=== PATIENT | male | born 1980 | race Caucasian/White ===

== ENCOUNTER 2022-05-16 15:37 | Emergency (ER) | payer SELFPAY ==
[~2022-05-16] VITALS: Ht 175.3 cm; Wt 124.7 kg
--- NOTE | 2022-05-16 16:18 | NUR ---
pt nam from the streets, was found laying in the sidewalk, was agitated prior to coming in. restless and agitated. roomed, tachycardic otherwise stable vitals. awaiting md priest.
--- NOTE | 2022-05-16 16:37 | NUR ---
coty printed circuit photographer at bedside for eval.
--- NOTE | 2022-05-16 17:04 | NUR ---
metallurgy laboratory technician at bedside for blood draw.
[2022-05-16] MEDS ORDERED: HALOPERIDOL LACTATE INJ 5 MG/ML VIAL IM ONE (17:30)
[2022-05-16] MEDS ORDERED: LORAZEPAM INJ 2 MG/ML VIAL IM/IV ONE (17:30)
[2022-05-16] MEDS ORDERED: diphenhydrAMINE HCL 50 MG/ML VIAL IM ONE (17:30)
[2022-05-16] MEDS ORDERED: LORAZEPAM INJ 2 MG/ML VIAL ONE (17:35)
[2022-05-16] MEDS ORDERED: diphenhydrAMINE HCL 50 MG/ML VIAL ONE (17:35)
[2022-05-16] MEDS ORDERED: HALOPERIDOL LACTATE INJ 5 MG/ML VIAL ONE (17:35)
--- NOTE | 2022-05-16 17:46 | NUR ---
pt restless, walking around unsteady. medicated as ordered.
[2022-05-16 17:48] LABS: BASOPHILS % (AUTO) 0.3 % (0.0-2.0); EOSINOPHILS % (AUTO) 0.1 % (0.0-6.0); HEMATOCRIT 50 % (39-51); HEMOGLOBIN 16.7 g/dL (13.5-17.5); LYMPHOCYTES # (AUTO) 1.7 K/uL (0.8-4.8); LYMPHOCYTES % (AUTO) 24.4 % (20.0-44.0); MEAN CORPUSCULAR HGB CONC 34 g/dl (31.0-36.0); MEAN CORPUSCULAR VOLUME 90 fL (80-96); MONOCYTES # (AUTO) 0.5 K/uL (0.1-1.30); MONOCYTES % (AUTO) 6.3 % (2.0-12.0); NEUTROPHILS # (AUTO) 4.9 K/uL (1.8-8.9); NEUTROPHILS % (AUTO) 68.9 % (43.0-81.0); PLATELET COUNT (AUTO) 309 K/uL (150-450); WHITE BLOOD COUNT (AUTO) 7.1 K/uL (4.3-11.0)
[2022-05-16 18:13] LABS: ALBUMIN 3.8 g/dL (3.4-5.0); BILIRUBIN,DIRECT 0.1 mg/dL (0.0-0.2); BILIRUBIN,TOTAL 0.3 mg/dL (0.2-1.0); CALCIUM, SERUM 8.3 mg/dL (8.5-10.1); CREATININE 0.9 mg/dL (0.6-1.3); POTASSIUM 3.7 mmol/L (3.5-5.1); TOTAL PROTEIN, SERUM 8.1 g/dL (6.4-8.2)
[2022-05-16 18:20] LABS: BILIRUBIN,URINE NEGATIVE (NEGATIVE); COLOR,URINE YELLOW (YELLOW); LEUKOCYTE ESTERASE ,URINE NEGATIVE (NEGATIVE); NITRITE, URINE NEGATIVE (NEGATIVE); PROTEIN,URINE TRACE mg/dl (NEGATIVE); UGLUCOSE NEGATIVE (NEGATIVE); UROBILINOGEN,URINE 0.2 EU/dL (0.2)
[2022-05-16 18:42] LABS: RBC,URINE 21-50 /HPF (0-2)
[2022-05-16 18:43] LABS: BACTERIA,URINE None seen /HPF (None Seen); WBC,URINE 0-2 /HPF (0-3)
--- NOTE | 2022-05-16 18:58 | NUR ---
sleeping in bed, arousable, on monitor w/ stable vitals. will continue to monitor.
--- NOTE | 2022-05-16 23:04 | NUR ---
Patient discharged to home in stable condition. Written and verbal after care instructions given. Patient verbalizes understanding of instruction.
[2022-05-16 23:05] VITALS: BP 136/60
== END 2022-05-16 23:05 | disposition home or self-care (01) ==
LOC: ER 15:45
DX: F10.129 Alcohol abuse with intoxication, unspecified (principal); R41.82 Altered mental status, unspecified; R51.9 Headache, unspecified; Y90.8 Blood alcohol level of 240 mg/100 ml or more
CPT/HCPCS: 99285; 96372 ×2; 70450; 85025; 80048; 80076; 81001; 36415; 80143; 80320; 80307; J2060; J1200; J1630; G0480